=== PATIENT | male | born 1975 | race Caucasian/White ===

== ENCOUNTER 2018-02-12 10:05 | Outpatient (CLI) | payer OTHER | END 2018-02-12 10:15 | disposition home or self-care (01) | LOC: SONOGRAMA 10:05 | DX: R14.0 Abdominal distension (gaseous) (principal) ==

== ENCOUNTER 2018-04-08 10:16 | Outpatient (CLI) | payer OTHER | END 2018-04-08 11:09 | disposition home or self-care (01) | LOC: TOM 10:16 | DX: K76.0 Fatty (change of) liver, not elsewhere classified (principal); R10.84 Generalized abdominal pain ==

== ENCOUNTER 2019-01-29 14:24 | Emergency (ER) | payer OTHER ==
[~2019-01-29] VITALS: Ht 180.3 cm; Wt 101.2 kg
[2019-01-29] MEDS ORDERED: ATENOLOL25 MG (14:30)
[2019-01-29] MEDS ORDERED: ATACAND16 MG (14:31)
== END 2019-01-29 21:57 | disposition home or self-care (01) ==
LOC: ER 14:24
DX: G44.41 Drug-induced headache, not elsewhere classified, intractable (principal); T36.3X5A Adverse effect of macrolides, initial encounter

== ENCOUNTER 2019-08-06 13:10 | Outpatient (CLI) | payer OTHER ==
[~2019-08-06 13:10] MED LIST: ATACAND16 MG; ATENOLOL25 MG
== END 2019-08-06 13:17 | disposition home or self-care (01) ==
LOC: RAD 13:10
DX: J01.81 Other acute recurrent sinusitis (principal); R06.02 Shortness of breath; H10.89 Other conjunctivitis

== ENCOUNTER 2019-10-13 10:09 | Outpatient (CLI) | payer OTHER | END 2019-10-13 10:11 | disposition home or self-care (01) | LOC: MRI 10:09 | PROVIDERS: ATTEND General Practice | DX: M75.112 Incomplete rotator cuff tear or rupture of left shoulder, not specified as traumatic (principal); M75.82 Other shoulder lesions, left shoulder | CPT/HCPCS: 73218 ==

== ENCOUNTER 2019-10-23 09:15 | Outpatient (CLI) | payer OTHER | END 2019-10-23 09:17 | disposition home or self-care (01) | LOC: TOM 09:15 | PROVIDERS: ATTEND Internal Medicine Gastroenterology | DX: R10.10 Upper abdominal pain, unspecified (principal); K29.30 Chronic superficial gastritis without bleeding; K21.9 Gastro-esophageal reflux disease without esophagitis ==

== ENCOUNTER 2020-05-04 10:01 | Outpatient (CLI) | payer OTHER | END 2020-05-04 11:06 | disposition home or self-care (01) | LOC: TOM 10:01 | PROVIDERS: ATTEND Specialist | DX: K40.90 Unilateral inguinal hernia, without obstruction or gangrene, not specified as recurrent (principal); K59.09 Other constipation; I88.8 Other nonspecific lymphadenitis ==

== ENCOUNTER 2020-06-01 09:04 | Outpatient (CLI) | payer OTHER | END 2020-06-01 09:24 | disposition HB | LOC: RAD 09:04 | DX: N20.0 Calculus of kidney (principal) ==

== ENCOUNTER 2020-12-01 11:27 | Outpatient (CLI) | payer OTHER | END 2020-12-01 11:32 | disposition home or self-care (01) | LOC: SONOGRAMA 11:27 | DX: N20.0 Calculus of kidney (principal) ==

== ENCOUNTER 2022-01-12 08:17 | Outpatient (CLI) | payer OTHER | END 2022-01-12 08:30 | disposition home or self-care (01) | LOC: SONOGRAMA 08:17 | PROVIDERS: ATTEND General Practice | DX: R53.81 Other malaise (principal); R19.7 Diarrhea, unspecified; R10.9 Unspecified abdominal pain ==

== ENCOUNTER 2023-04-23 12:24 | Outpatient (CLI) | payer OTHER | END 2023-04-23 12:33 | disposition home or self-care (01) | LOC: MRI 12:24 | PROVIDERS: ATTEND Otolaryngology | DX: R42 Dizziness and giddiness (principal) | CPT/HCPCS: 70552 ==